=== PATIENT | female | born 1990 | race Caucasian/White ===

== ENCOUNTER 2025-01-16 21:56 | Emergency (ER) | payer OTHER, SELFPAY ==
--- OUTSIDE RECORDS SUMMARY | 2015-07-12 07:45 | XMS_ITS | Continuity of Care Document ---
Author Organization [facility] Address [address] [place] [address] [place] [address] Phone Care Team Providers Care Goal Umpire Name Role Phone Unavailable Unavailable Unavailable Procedures Procedure Date TB INTRADERMAL TEST Advance Directives Directive Yes / No Effective Date File Name No Information Encounters Encounter Description Practice Location Reason(s) For Visit Diagnoses Date Provider Providers Copied on Encounter [facility], [address] [place] [address], [place], [place], [id number], [place] tel:[phone] [facility] cc tb test (chief complaint) Encounter for screening for respiratory tuberculosis 4 No Information Family History Family Member Type Diagnosis Age At Onset No Information Payers Payer name Insurance type Covered republican ID Authoriza tion(s) [employer] [id number] Social History Type Description Quantity Date Captured Comments Alcohol Use Details Unknown Caffeine Use Details Unknown Tobacco Use Status No Information Smoking Status No Information Sex Female Chief Complaint And Reason For Visit From encounter dated '07/12/2015 12:45'. cc tb test (chief complaint) Reason For Referral Reason For Referral No Information History Of Present Illness Encounter Date Complaint History Of Prese nt Illness cc tb test Functional Status Date Functional Assessmen t No Information Instructions Date Instruction Additional Infor mation No Information Assessments Type Assessment Date assessment Encounter for screening for resp iratory tuberculosis Patient Care Teams Name Effective Dates (start - stop) Status Members No Information
--- OUTSIDE RECORDS SUMMARY | 2023-01-31 05:23 | XMS_ITS | Continuity of Care Document ---
Author Organization [facility] Address [address] [place] [address] Phone Care Team Providers Care Contract Design Agent Name Role Phone Román Silva DO Unavailable Unavailable Allergies, Adverse Reactions, Alerts Substance Reaction Status Criticality No Known Allergies Active No Inform ation Medications Medication Instructions Dosage Effective Dates (start - stop) Status Comments Wellbutrin XL 300 mg 24 hr tablet, extended release take 1 tablet by oral route every day 300 MG - Active Wellbutrin XL 150 mg 24 hr tablet, extended release take 1 tablet by oral route every day 150 MG - Active trazodone 50 mg tablet take 1 tablet by oral route every day at bedtime 50 MG - Active methadone 10 mg tablet take 3 tablet by oral route every 24 hours 30 MG - Active mupirocin 2 % topical ointment apply by topical route 2 times every day a small amount to the affected area Not Available - Active ibuprofen 800 mg tablet take 1 tablet by mouth three times a day with food as needed for pain - Active doxycycline monohydrate 100 mg capsule take 1 capsule by oral route 2 times every day 100 MG - Active buprenorphine 8 mg-naloxone [address] 1 tablet by sublingual route every day allow to dissolve slowly in mouth without chewing or swallowing 1.00 tablet - Active Procedures Procedure Date OFFICE/OUTPATIENT VISIT, EST ROUTINE VENIPUNCTURE PREV VISIT, EST, AGE 18-39 DRUG TEST PRSMV DIR OPT OBS DRUG SCREENING FENTANYL OFFICE/OUTPATIENT VISIT, EST OFFICE/OUTPATIENT VISIT, EST OFFICE/OUTPATIENT VISIT, EST Covid Testing [facility] PREV VISIT, EST, AGE 18-39 DRAINAGE OF SKIN ABSCESS OFFICE/OUTPATIENT VISIT, EST ROUTINE VENIPUNCTURE OFFICE/OUTPATIENT VISIT, EST ROUTINE VENIPUNCTURE OFFICE/OUTPATIENT VISIT, EST OFFICE/OUTPATIENT VISIT, EST OFFICE/OUTPATIENT VISIT, EST ROUTINE VENIPUNCTURE UDS Exempt REMOVE/INSERT DRUG IMPLANT Nexplanon 68mg Implant Extract; Erupted Th/exposted Rt 019 Removal Of Torus Mandibularis 9 Removal Of Torus Mandibularis 9 Extract; Erupted Th/exposted Rt 019 Extract; Erupted Th/exposted Rt 019 Extract; Erupted Th/exposted Rt 019 Extract; Erupted Th/exposted Rt 019 Extract; Erupted Th/exposted Rt 019 Extract; Erupted Th/exposted Rt 019 Extract; Erupted Th/exposted Rt 019 Extract; Erupted Th/exposted Rt 019 OFFICE/OUTPATIENT VISIT, EST CHIROPRACTIC MANIPULATION CHIROPRACTIC MANIPULATION CHIROPRACTIC MANIPULATION CHIROPRACTIC MANIPULATION CHIROPRACTIC MANIPULATION Comp Oral Eval New/estab Patient 2018 Intraoral-periapical 1st Film 9 Ocjdcpsyb-onmjglealm-fmvq Additional Jul Emkzrmngv-kybzkaskqp-hgmx Additional Jul Emnxmnnml-drmmpeeowv-sxag Additional Jul Augbmiofd-whpfkubnmr-avqx Additional Jul Tobacco Counseling Oral Hygiene Instruction CHIROPRACTIC MANIPULATION CHIROPRACTIC MANIPULATION CHIROPRACTIC MANIPULATION PREV VISIT, RAHEEL, AGE 18-39 CHIROPRACTIC MANIPULATION CHIROPRACTIC MANIPULATION No Charge UDS Exempt CHIROPRACTIC MANIPULATION CHIROPRACTIC MANIPULATION CHIROPRACTIC MANIPULATION CHIROPRACTIC MANIPULATION IMMUNIZATION ADMIN HEP A VACCINE, ADULT IM OFFICE/OUTPATIENT VISIT, NEW CHIROPRACTIC MANIPULATION Advance Directives Directive Yes / No Effective Date File Name No Information Encounters Encounter Description Practice Location Reason(s) For Visit Diagnoses Date Provider Providers Copied on Encounter [facility], [address] [place] [address], [id number] , tel:[phone] [facility] No Information 3 Plank DO Román. [address] [place] [address], [id number], [place]. tel:[phone] [facility], [address] [place] [address], [id number] , tel:[phone] [facility] No Information 3 Plank DO Román. [address] [place] [address], [id number], [place]. tel:[phone] OFFICE/OUTPA TIENT VISIT, EST [facility], [address] [place] [address], [id number] , tel:[phone] [facility] F/U (chief complaint)La b draw (chief complaint) Superficial thrombophlebitis of right upper extremityCelluli tis of finger of left hand Mar-0 - 3 Plank DO Román. [address] [place] [address], [id number], [place]. tel:[phone] [facility], [address], [place], [id number] , [place] tel: [phone] [facility] No Information 3 Plank DO Román. [address], [place], [id number], [place]. tel:[phone] PREV VISIT, EST, AGE 18-39 [facility], [address], [place], [id number] , [place] tel: [phone] [facility] Annual Exam (chief complaint)UD S (chief complaint)Re quisition (chief complaint) Encounter for general adult medical examination without abnormal findingsPain and swelling of upper extremity, rightOther specified soft tissue disordersSubstan ce use disorderBipolar disorder, unspecifiedSuper ficial thrombophlebitis of right upper extremity 3 Plank DO Román. [address], [place], [id number], [place]. tel:[phone] OFFICE/OUTPA TIENT VISIT, EST [facility], [address], [place], [id number] , [place] tel: [phone] [facility] med refill (chief complaint) Common wartBorderline personality disorderSubstanc e use disorderBody mass index [BMI] 31.0-31.9, adult Nov-0 2 Plank DO Román. [address], [place], [id number], [place]. tel:[phone] OFFICE/OUTPA TIENT VISIT, EST [facility], [address], [place], [id number] , [place] tel: [phone] [facility] hearing loss,tinniti s (chief complaint) Bilateral hearing loss, unspecified hearing loss typeBilateral tinnitus 2 Plank DO Román. [address], [place], [id number], [place]. tel:[phone] [facility], [address], [place], [id number] , [place] tel:[phone] [facility] Bilateral hearing loss, unspecified hearing loss type 2 Plank DO Román. [address], [place], [id number], [place]. tel:[phone] OFFICE/OUTPA TIENT VISIT, EST [facility], [address], [place], [id number] , [place] tel:[phone] [facility] Med Refill & ER F/U (chief complaint) Body mass index [BMI] 38.0-38.9, adultSinus headache 2 Plank DO Román. [address], [place], [id number], [place]. tel:[phone] [facility], [address] [place] [address], [id number] , [place] [phone] [facility] No Information 1 Visci DO Han. [address], [place], [id number], [place]. tel:[phone] PREV VISIT, EST, AGE 18-39 [facility], [address] [place] [address], [id number] , [place] tel:[phone] [facility] annual exam (chief complaint) Encounter for gynecological examination (general) (routine) without abnormal findingsBody mass index [BMI]40.0-44.9, adult- [facility] codeEnc[facility] for STD screening 1 Rolan [facility] Torito. [address], [place], [id number], [place]. tel:[phone] OFFICE/OUTPA TIENT VISIT, EST [facility], [address] [place] [address], [id number] , [place] tel:[phone] [facility] Right foot procedure (chief complaint) Elevated liver enzymesSuperfici al foreign body of right great toe, initial encounterOther specified local infections of the skin and subcutaneous tissueBody mass index [BMI]40.0-44.9, adult 1 Plank DO Román. [address], [place], [id number], [place]. tel:[phone] OFFICE/OUTPA TIENT VISIT, [facility], [address], [place], [id number] , [place] tel: [phone] [facility] est care (chief complaint) Superficial foreign body of right great toe, initial encounterTinea pedis of both feetSubstance use disorderChronic hepatitis C without hepatic comaSeasonal allergic rhinitis, unspecified triggerBody mass index [BMI]40.0-44.9, adult 1 Plank DO Román. [address], [place], [id number], [place]. tel:[phone] OFFICE/OUTPA TIENT VISIT, [facility], [address] [place] [address], [id number] , [place] tel: [phone] [facility] Hospital follow up (chief complaint) Body mass index (BMI) 35.0-35.9, adultHospital discharge follow-upPneumon ia of both lower lobes due to infectious organism 0 Mauro Leach. [address] [place] [address], [id number], [place]. [phone] OFFICE/OUTPA TIENT VISIT, [facility], [address] [place] [address], [id number] , [place] tel: [phone] [facility] med f/u (chief complaint) Body mass index (BMI) 32.0-32.9, adultBipolar 2 disorder, major depressive episode -201 9 Mauro Leach. [address] [place] [address], [id number], [place]. tel:[phone] OFFICE/OUTPA TIENT VISIT, [facility], [address], [place], [id number] , [place] tel: [phone] [facility] Depression follow up (chief complaint) Body mass index (BMI) 31.0-31.9, adultTobacco useBipolar 2 disorder, major depressive episodeElevated liver enzymesHepatitis C antibody test positiveEncounte r to discuss test results 9 Mauro Leach. [address], [place], [id number], [place]. tel:[phone] [facility], [address] [place] [address], [id number] , [place] tel:[phone] [facility] lab draw (chief complaint) No Information 9 Mauro Leach. [address], [place], [id number], [place]. tel:[phone] [facility], [address] [place] [address], [id number] , [place] tel:[phone] [facility] Nexplanon Removal & Re-insertion (chief complaint)co ntraception (chief complaint) Body mass index (BMI) 31.0-31.9, adultNexplanon removalNexplanon insertionEncount er for surveillance of other contraceptives 9 Ashlee Wallace. [address], [place], [id number], [place]. tel:[phone] [facility], [address] [place] [address], [id number] , [place] tel:[phone] [facility] Extractions (chief complaint) Encounter for screening for dental disorders 9 Harjit France. [address], [place], [id number], [place]. tel:[phone] OFFICE/OUTPA TIENT VISIT, EST [facility], [address] [place] [address], [id number] , [place] tel:[phone] [facility] Medication refill (chief complaint) Body mass index (BMI) 30.0-30.9, adultBipolar 2 disorder, major depressive episodeHepatitis C antibody test positivePolysubs tance abuseHair lossWeight gainElevated liver enzymesEncounter to discuss test results 9 Mauro Leach. [address], [place], [id number], [place]. tel:[phone] [facility], [address], [place], [id number] , [place] tel:[phone] [facility] thoracic spine (chief complaint)th oracic spine (chief complaint) Segmental and somatic dysfunction of thoracic regionPain in thoracic spineSegmental and somatic dysfunction of lumbar region 9 Dominik Mar. [address], [place], [id number], [place]. tel:[phone] [facility], [address] [place] [address], [id number] , [place] tel:[phone] [facility] thoracic spine (chief complaint)th oracic spine (chief complaint) Segmental and somatic dysfunction of thoracic regionPain in thoracic spineSegmental and somatic dysfunction of lumbar regionLow back pain 9 Dominik Mar. [address], [place], [id number], [place]. tel:[phone] [facility], [address] [place] [address], [id number] , [place] tel:[phone] [facility] thoracic spine (chief complaint)th oracic spine (chief complaint) Segmental and somatic dysfunction of lumbar regionLow back painSegmental and somatic dysfunction of thoracic region 9 Dominik Mar. [address], [place], [id number], [place]. tel:[phone] [facility], [address], [place], [id number] , [place] tel:[phone] [facility] thoracic spine (chief complaint)th oracic spine (chief complaint) Segmental and somatic dysfunction of thoracic regionPain in thoracic spineSegmental and somatic dysfunction of lumbar regionLow back pain 9 Dominik Mar. [address] [place] [address], [id number], [place]. tel:[phone] [facility], [address], [place], [id number] , [place] tel: [phone] [facility] lumbar spine (chief complaint)judi mbar spine (chief complaint) Segmental and somatic dysfunction of thoracic regionPain in thoracic spineSegmental and somatic dysfunction of lumbar regionLow back pain 0-201 9 Dominik Mar. [address] [place] [address], [id number], [place]. tel:[phone] [facility], [address] [place] [address], [id number] , [place] tel: [phone] Dental Clinic Encounter for screening for dental disorders 9 Everett Zarate. [address] [place] [address], [id number], [place]. tel:[phone] [facility], [address] [place] [address], [id number] , [place] tel: [phone] [facility] lumbar spine (chief complaint)judi mbar spine (chief complaint) Segmental and somatic dysfunction of lumbar regionLow back painSegmental and somatic dysfunction of thoracic regionPain in thoracic spine 9 Dominik Mar. [address] [place] [address], [id number], [place]. tel:[phone] [facility], [address] [place] [address], [id number] , [place] tel: [phone] [facility] lumbar spine (chief complaint)judi mbar spine (chief complaint) Segmental and somatic dysfunction of lumbar regionLow back painSegmental and somatic dysfunction of thoracic regionPain in thoracic spine 9 Dominik Mar. [address] [place] [address], [id number], [place]. tel:[phone] [facility], [address] [place] [address], [id number] , [place] tel: [phone] [facility] lumbar spine (chief complaint)judi mbar spine (chief complaint) Segmental and somatic dysfunction of lumbar regionLow back painSegmental and somatic dysfunction of thoracic regionPain in thoracic spine 9 Dominik Mar. [address], [place], [id number], [place]. tel:[phone] PREV VISIT, EST, AGE 18-39 [facility], [address], [place], [id number] , [place] tel: [phone] [facility] annual exam (chief complaint) Encounter for screening for HIVEncounter for STD screeningBody mass index (BMI) 26.0-26.9, adult- STD liefstyle code- Well woman normal findings 9 [facility] Torito. [address] [place] [address], [id number], [place]. tel:[phone] [facility], [address], [place], [id number] , [place] tel: [phone] [facility] lumbar spine (chief complaint)judi mbar spine (chief complaint) Segmental and somatic dysfunction of lumbar regionLow back painSegmental and somatic dysfunction of thoracic regionPain in thoracic spine 0 9 Dominik Mar. [address] [place] [address], [id number], [place]. tel:[phone] [facility], [address] [place] [address], [id number] , [place] tel: [phone] [facility] lumbar spine (chief complaint)judi mbar spine (chief complaint) Segmental and somatic dysfunction of lumbar regionLow back painSegmental and somatic dysfunction of thoracic regionPain in thoracic spine 0 9 Dominik Mar. [address] [place] [address], [id number], [place]. tel:[phone] [facility], [address] [place] [address], [id number] , [place] tel:[phone] [facility] No Information 9 Mauro Leach. [address] [place] [address], [id number], [place]. tel:[phone] [facility], [address], [place], [id number] , [place] tel:[phone] [facility] lumbar spine (chief complaint)judi mbar spine (chief complaint) Segmental and somatic dysfunction of lumbar regionLow back painSegmental and somatic dysfunction of thoracic regionPain in thoracic spine 9 Dominik Mar. [address], [place], [id number], [place]. tel:[phone] [facility], [address] [place] [address], [id number] , [place] tel: [phone] [facility] lumbar spine (chief complaint)judi mbar spine (chief complaint) Segmental and somatic dysfunction of lumbar regionLow back painSegmental and somatic dysfunction of thoracic regionPain in thoracic spine Dominik Mar. [address] [place] [address], [id number], [place]. tel:[phone] [facility], [address] [place] [address], [id number] , [place] tel:[phone] [facility] lumbar spine (chief complaint)judi mbar spine (chief complaint) Segmental and somatic dysfunction of lumbar regionLow back painSegmental and somatic dysfunction of thoracic regionPain in thoracic spine Dominik Mar. [address] [place] [address], [id number], [place]. tel:[phone] [facility], [address] [place] [address], [id number] , [place] tel:[phone] [facility] lumbar spine (chief complaint)judi mbar spine (chief complaint) Segmental and somatic dysfunction of lumbar regionLow back painSegmental and somatic dysfunction of thoracic regionPain in thoracic spine 9 Dominik Mar. [address] [place] [address], [id number], [place]. tel:[phone] OFFICE/OUTPA TIENT VISIT, NEW [facility], [address] [place] [address], [id number] , [place] tel:[phone] [facility] allergies (chief complaint)judi mp under arm (chief complaint)th ick toenails (chief complaint)He p C (chief complaint)LE AD (chief complaint)ab scess (chief complaint) Body mass index (BMI) 25.0-25.9, adultSeasonal allergiesElevate d blood lead levelPolysubstan ce abuseBipolar 2 disorder, major depressive episodeHepatitis C antibody test positiveFungal infection of toenailEnlarged lymph node 9 Mauro Leach. [address] [place] [address], [id number], [place]. tel:[phone] [facility], [address] [place] [address], [id number] , tel:[phone] [facility] lumbar spine (chief complaint)judi mbar spine (chief complaint) Segmental and somatic dysfunction of lumbar regionLow back painSegmental and somatic dysfunction of thoracic regionPain in thoracic spine 9 Dominik Mar. [address] [place] [address], [id number], [place]. tel:[phone] Family History Family Member Type Diagnosis Age At Onset Father Problem (finding) Mental illness Mother Problem (finding) Mental illness Father Problem (finding) migraine Father Problem (finding) alcoholism Brother Problem (finding) Allergies Father Problem (finding) depression Mother Problem (finding) depression Brother Problem (finding) Alive and well Mother Problem (finding) migraine Father Problem (finding) Blood disorder Mother Problem (finding) Allergies Father Problem (finding) Alive and well Brother Problem (finding) Mental illness Mother Problem (finding) Alive and well Mother Problem (finding) Obesity Brother Problem (finding) Obesity Brother Problem (finding) attention deficit hyper activity disorder Immunizations Vaccine Date Status Comments Hep A (adult) administered Source: New munization Record Payers Payer name Insurance type Covered alliance party ID Authoriza tion(s) [place] Medicaid [facility] [id number] Medicaid [facility] [id number] [place] Adv [facility] [id number] Medicaid [facility] [id number] Social History Type Description Quantity Date Captured Comments Alcohol Use Details Unknown Caffeine Use Details Unknown Tobacco Use Status Smoking Status No Information Sex Female Sexual Orientation Straight or heterosexual Gender Identity Female Chief Complaint And Reason For Visit No Information Reason For Referral Reason For Referral No Information Plan Of Treatment Date Type Action Status Goal Influenza vaccine. Due on due Goal Tdap. Due on due Goal HPV. Due on due Goal Tdap Vaccine. Due on 2022 due Goal Unhealthy drug use screening . Due on due Goal Lipid panel. Due on 029 due Goal Hepatitis C screening. Due o n due Goal Depression screening. Due on due Goal RLP. Due on due Goal PRAPARE ASSESSMENT. Due on due Goal Lipid panel. Due on due Goal RLP. Due on due Goal Depression screening. Due on due Goal Influenza vaccine. Due on due Goal PRAPARE ASSESSMENT. Due on due Goal Tdap Vaccine. Due on 2022 due Goal Tdap. Due on due Goal Tdap. Due on due Goal Tdap Vaccine. Due on 2022 due Goal Depression screening. Due on due Goal PRAPARE ASSESSMENT. Due on due Goal RLP. Due on due Goal Influenza vaccine. Due on due Goal Lipid panel. Due on due Goal Tobacco cessation counseling completed Goal Lipid panel. Due on due Goal Tdap Vaccine. Due on 2022 due Goal RLP. Due on due Goal Influenza vaccine. Due on due Goal PRAPARE ASSESSMENT. Due on due Goal Depression screening. Due on due Goal Tdap. Due on due Goal Tdap. Due on due Goal PRAPARE ASSESSMENT. Due on due Goal Lipid panel. Due on due Goal Tdap Vaccine. Due on 2022 due Goal RLP. Due on due Goal Depression screening. Due on due Goal Influenza vaccine. Due on due Goal Tobacco cessation counseling completed Goal Depression screening. Due on due Goal RLP. Due on due Goal Tdap. Due on due Goal Influenza vaccine. Due on due Goal Lipid panel. Due on due Goal PRAPARE ASSESSMENT. Due on due Goal Dietary management education , guidance, and counseling completed Goal Tobacco cessation counseling completed Goal Dietary management education , guidance, and counseling completed Goal Dietary management education , guidance, and counseling completed Goal Tobacco cessation counseling completed Goal Tobacco cessation counseling completed Goal Dietary management education , guidance, and counseling completed Goal Dietary management education , guidance, and counseling completed Goal Tobacco cessation counseling completed Goal Dietary management education , guidance, and counseling completed Goal Dietary management education , guidance, and counseling completed Goal Tobacco cessation counseling completed Goal Dietary management education , guidance, and counseling completed Goal Tobacco cessation counseling completed Goal Tobacco cessation counseling completed Goal Dietary management education , guidance, and counseling completed Goal Dietary management education , guidance, and counseling completed Goal Tobacco cessation counseling completed Goal Dietary management education , guidance, and counseling completed Goal Tobacco cessation counseling completed Referral Ordered: UNILATERAL NON-INVASIVE LOWER EXTREMITY VENOUS STUDY Right [id number] Ordered: Referrals: Otolaryngology. Evaluate and treat [id number] Ordered: US Exam Of ABD Limited gallbladder [id number] Ordered: Gastroenterology (related to Hepatitis C antibody test positive) [id number] Ordered: Referrals: Gastroenterology. Evaluate and treat [id number] Order: Lab OrderGyn Pap Test-Age -based Guideline for Cervical Cancer (Aptima) ([id number]), Sent on: [id number] Order: Lab OrderLead Standard Profile, Blood ([id number]), Ordered on: [id number] Order: Lab OrderCBC With Differential/Platelet ([id number]), Ordered on: [id number] Order: Lab Order Hepatic Function Panel (7) ([id number]), Ordered on: [id number] History Of Present Illness Encounter Date Complaint History Of Olegario nt Illness F/U Pt is here for a f/u bilateral hand swelling. Pt states that the swelling has improved but this morning she noticed a few areas that are raised, painful and tight. Pt has an area on left thumb that has gotten worse. She states it had a deep scab that she picked and it is looking dark. Pt has not gotten labs drawn due to the swelling and being out of town but is willing to have them done today. Pt admits to anxiety and depression. States that her medications are helping. She is also off her subutex and is now on methadone. Pt receives that script at [facility]. Pt smokes 1/2 PPD. Denies alcohol use. //STIVEN CamachoGADonnell 20 // PHQ 18 //STIVEN Camacho Lab draw Labs drawn succe ssfully x1 attempt L hand w/ butterfly. 2x2 and bandage applied. //STIVEN Camacho Annual Exam Pt here for [facility] wellness exam. States she smokes about 12 cigs/day, denies any ETOH usage. PHQ- 16 and AIDE- 18. States she missed her appt @ [facility] so they dismissed her from practice. States been on wait list for about a month to see [place]. Currently sees Meg @ [facility]; x2/month. Also, states on 22mg subutex Rx'd by [facility] (unsure of 's name).Also noted, bilateral hand swelling; states started about 3 days ago. No other issues/concerns at this time.//Harsha Tam RN Requisition Pt given lab req uisition to have labs completed at hospital. Pt also advised to go to hospital to obtain STAT order Venous Duplex (pt had left when this nurse went back to room to give her order to take w/ her to hospital.)//Harsha Tam RN UDS UDS-- (+) THC, C OC, BUPFentanyl Dip- NEGATIVE//Harsha Tam RN med refill Pt here today fo r med refill. Pt is wondering if PCP would be willing to take over psych meds that Dr. Olivera at [facility] prescribes. Pt states has not seen Joselin in approx 2 months. Pt states missed 2 appts with them has reached out to piano case and bench assembler Meg to see if pt can get back in with Dr. Olivera. Pt is requesting to have refills on Trazodone, remron, Prazosin, Wellbutrin and Ibuprofen. Pt also c/o something on R foot on 4th toe. Pt thinks its a corn, has noticed approx 1 year. Pt states has increased in size and is painful. Voices no other issues or concerns at this time. -RiteshERNIE. hearing loss,tinnitis The sympto ms began 5 months ago. The symptoms are reported as being severe. The symptoms occur constantly. The location is bilateral ears. She states the symptoms are chronic. symptoms identical to last time she presented with this.occasionally listens loud music. no apparent hx ototoxic meds Med Refill & ER F/U Pt here toda y for medication refill & ER F/U. Pt needs refill on Ibuprofen. Pt states she takes it for back pain, neck pain and headaches. Pt states she is taking medication daily and up to TID depending on her pain. States she is having daily headaches and takes the medication for that. Pt was in hospital recently. Pt states she is doing well and had apt tomorrow with Dr. Olivera psychiatrist. NO other issues or concernsTGrodi LPNdenies suicidal and homicidal thoughts. tptx hep c fa;ll 2020 dr bloom-will schedule f/u appt tpstates h/a mostly a nuisance. no n/v . not intractable . mosly bilat frontal. responds well to ibuprofen for long period of time. tp annual exam Currently pregna nt: no. : 5. Parity: Term: 4. Pre-Term: 1. Livin. Patient is not contemplating . The patient states she uses Nexplanon for control. Last LMP was 09/28/2019. Her menses is absent. Negative for dysmenorrhea and menorrhagia. Negative for: breast discharge, breast lump(s), breast pain and breast self exam.Negative for Hormone replacement therapy. The patient does use tobacco. Tobacco cessation has been discussed. She does drink alcohol. Additional information: Patient is here for annual exam. States she has the Nexplanon for BC. States she has not been sexually active for over 1 year. c/o vaginal discharge with odor. 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 Believes she may have BV as she has had it in the past and symptoms are the same. Right foot procedure Presents fo r procedure to right great toe. Possible foreign body. Pt has appt with Dr Bloom for elevated liver enzymes 09/27/2020. Bernadette Coe RNLab draw from right hand x 2 attempts, tolerated well, pressure dressing applied. Bernadette Coe RNagree tp est care Pt here today to est care. Pt states would like ibuprofen prescription for head aches, neuropathy and body pain. Pt is interested in starting Vivitrol, states was on it in the past. Pt states was on it in 2017. August was last use. DOC stated opiates, meth, stimulants , crack, cocain and alcohol. Pt states just got out of treatment and is noticing having more cravings, dreams about using. Treatment was at Saturday [facility] in [place], [place], was released 08/02/20. Pt sees psychiatrist Dr. Price, and counselor is Mirella at [facility]. Pt stats has something on great toe on right foot. Noticed approx 1 week ago, painful when walking. Pt notices some swelling and redness. Pt states has history of Hep C, states did not seek treatment for it. Was told in . Voices no other problems or concerns at this time. [facility] follow up Patient here for hospital stay follow up. Patient was admitted into [facility] for Pneumonia. Patient was discharged . Patient says she still isn't 100% but better than when she went in. Patient was given amoxicillin, mucinex and inhaler. Patient picked those up and is taking them. Patient has no issues at this time.Lola Mendoza.Noted above. She is feeling a little better, still very tired. She mentions that she is seeing Dr. Renata Downs at [facility] and she is prescribing all psych meds. No other concerns noted. jian med f/u Pt is here to di scuss her Latuda. She would like it increased if possible. Pt also would like refill on her Prozac. Pt states that she is taking a break from her Nicotine patches. NDIltsCMANoted above. Patient reports she saw her counselor at [facility] last week and they discussed that patient is feeling more impulsive lately. Her Latuda dose has not been changed since June 2018. She is still planning to see a psychiatrist when possible through [facility], but that will not be as quick as she thought . Patient is worried because it was the increased impulsiveness that caused her to relapse back to drug use last time . [facility] Depression follow up Patient her e to follow up on depression. Patient states that she moved out of Anushka's house and got own apartment. Patient feels medication is working but not enough. Patient hoping for in increase. Patient is going to [facility] counseling and recovery. Patient is wanting to stop smoking and would like patches or what ever you feel is best. No other issues at this time.Lola Mendoza.Noted above. Patient reports she did not get her refill of Buspirone when she got her other meds last time. She is not sure why, verified that prescription was sent, she is to call pharmacy and then call clinic if assistance is needed. [facility] lab draw Labs obtained chung ccessfully on first attempt from left hand. STIVEN Rosa Nexplanon Removal & Re-insertion contraception Extractions Medication refill Patient here f or medication refills. Patient is needing all meds refilled. Patient is requesting an antidepressant. Patient is having hard time getting into [facility] Counseling. They had a dr. suggs and is behind. Patient says bipolar meds are working but is having depression. 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 Patient is concerned that her thyroid may be off. Patient asked about labs. No other issues at this time.Lola Mendoza.Noted above. Patient reports feeling more depressed, she was on Latuda and prozac together in the past. She is worried about her thyroid because her hair is falling out and she is tired and gaining weight. [place] thoracic spine thoracic spine Pt reports feeli ng good this week.RI score today 19 thoracic spine thoracic spine Pt reports mid b ack tightness.RI score today 37 thoracic spine thoracic spine Pt feeling much better. Re-check in 1 week. thoracic spine thoracic spine Pt continues to progress as anticipated.RI score 08/12/2018- 40 lumbar spine lumbar spine Pt reports mid b ack feels better. lumbar spine lumbar spine Pt continues to progress as anticipated. lumbar spine lumbar spine Pt reports feeli ng tightness and soreness in mid back. lumbar spine lumbar spine Pt continues to progress as anticipated. annual exam Currently pregna nt: no. : 5. Parity: Term: 4. Pre-Term: 1. Livin. The patient states she uses Nexplanon for control. Last LMP was 06/18/2018. Her menses is irregular with light flow. There are no pertinent negatives. The patient does use tobacco. She does drink alcohol. Additional information: Noticed lump in right axilla about 1 month ago. Reports lump wasn't painful and resolved on it's own. Pt requests std check and annual exam. Previous exams done by [facility] in [facility]. Pt declines condoms. Yola SALEEM Patient is here for annual exam. Currently using Nexplanon for BC. States it expires in Oct 2018. Would like a new Nexplanon for future use. 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 lumbar spine lumbar spine Pt continues to improve as anticipated. lumbar spine lumbar spine Pt continues to slowly improve. lumbar spine pt continues to progress as anticipated. lumbar spine lumbar spine lumbar spine Pt progressing a s anticipated. lumbar spine lumbar spine pt reports havin g side effects to new medications including jaw tightness and headache. lumbar spine lumbar spine Pt reports doing well after first adjustment. thick toenails LEAD abscess Hep C Patient here to discuss allergies, lump under arm, thick toe nails and Hep C. Patient was originally wanting to get back on Vivitrol but wants to wait at this time. Patient wants to discuss it with you. Patient states she is having issues with seasonal allergies. Patient is sneezing, sinus congestion, stuffy/runny nose. Patient states she just notice she over last few months her nails on toes are thick. Patient is concerned with high lead levels due to last job at [employer]. Patient also has Hep C. Was diagnosed in 2014. 06/13/18 was last use. DOC was opioids and cocaine. I advised patient that most Occupational Therapist Aide will not treat until 6 months clean. Patient has lump under right arm pit. Patient noticed it while in shower 2 wks ago. Patient has nexplanon and is scheduled to see torito 07/29/18. Lastly patient has abscess on left wrist that was treated by ne disla with antibiotic No other issues at this time.Lola Mendoza.Noted above. Patient was on Vivitrol in the past for 18 months, reports she had more intense headaches with it . She is worried what would happen if she was on it and used cocaine with heroin or fentanyl in it? Talked in length that we would encourage no illicit drug use. She was diagnosed as bipolar 2 and skyped with a psychiatrist through [facility] that has her on current medication. She is asking for allergy medication. She is worried about toenail fungus, discussed potential liver impact to traditional treatments. Patient reports known Hep C+. She also is concerned about blood lead levels, reports she worked at [employer] and had to wear a mask but her levels were always high. JHackerNP allergies lump under arm lumbar spine lumbar spine C/O low and mid back pain with onset in teens after falling on a log. Reports upper and lower localized pain which is worse in cold weather or with increased activity. Pt reports being dx with a bone spur in low back.Pain is primarily at L3-L5 PVM on the Rt. & Lt. and extends to the SI joint, Rt. & Lt. Pain is local, dull, and without radiation to the lower extremities. No sensory or motor changes noted. Symptoms present with a pain scale of 5 (VAS = 1-10). Pain interferes with regular ADL's. Increase in pain with movement/ROM and ADL'S. Some decrease in symptoms with rest. No change in the pain pattern from the onset of symptoms. Pain pattern is as prior times. Functional Status Date Functional Assessmen t No Information Instructions Date Instruction Additional Infor toan Giving encouragement to exercise Related to Body mass index [BMI] 31.0-31.9, adult Dietary management e ducation, guidance, and counseling Related to Body mass index [BMI] 31.0-31.9, adult Giving encouragement to exercise Related to Body mass index [BMI] 38.0-38.9, adult Dietary management e ducation, guidance, and counseling Related to Body mass index [BMI] 38.0-38.9, adult Encouraged monthly B SE. Recommend calcium 1000mg QD. Encouraged good dietary intake and exercise. Laboratory specimens sent to lab. Patient to call in 2 weeks if desires results.Discussed control options and patient desires Nexplanon Related to Encounter for gynecological examination (general) (routine) without abnormal findings Cervical cultures se nt to lab. Patient to call in 1 week for results. Discussed HX of BV and patietn request Rx for flagyl as she believes that is her susanna at this time. Discussed proper hygiene measures. Rx for flagyl was sent to her pharmacy. Related to - STD liefstyle code Dietary management e ducation, guidance, and counseling Related to Body mass index [BMI]40.0-44.9, adult Giving encouragement to exercise Related to Body mass index [BMI]40.0-44.9, adult Giving encouragement to exercise Related to Body mass index [BMI]40.0-44.9, adult Dietary management e ducation, guidance, and counseling Related to Body mass index [BMI]40.0-44.9, adult Giving encouragement to exercise Related to Body mass index [BMI]40.0-44.9, adult Dietary management e ducation, guidance, and counseling Related to Body mass index [BMI]40.0-44.9, adult Giving encouragement to exercise Related to Body mass index (BMI) 35.0-35.9, adult Dietary management e ducation, guidance, and counseling Related to Body mass index (BMI) 35.0-35.9, adult Giving encouragement to exercise Related to Body mass index (BMI) 32.0-32.9, adult Dietary management e ducation, guidance, and counseling Related to Body mass index (BMI) 32.0-32.9, adult Dietary management e ducation, guidance, and counseling Related to Body mass index (BMI) 31.0-31.9, adult Giving encouragement to exercise Related to Body mass index (BMI) 31.0-31.9, adult Dietary management e ducation, guidance, and counseling Related to Body mass index (BMI) 31.0-31.9, adult Giving encouragement to exercise Related to Body mass index (BMI) 31.0-31.9, adult Giving encouragement to exercise Related to Body mass index (BMI) 30.0-30.9, adult Dietary management e ducation, guidance, and counseling Related to Body mass index (BMI) 30.0-30.9, adult Encouraged monthly B SE. Recommend calcium 1000mg QD. Encouraged good dietary intake and exercise. Laboratory specimens sent to lab. Patient to call in 2 weeks if desires results.Discussed control options and patient desires Nexplanon Related to - Well woman normal findings HIV and RPR drawn and sent to [facility] b. Related to Encounter for screening for HIV Cervical cultures se nt to lab. Patient to call in 1 week for results Related to Encounter for STD screening Giving encouragement to exercise Related to Body mass index (BMI) 26.0-26.9, adult Dietary management e ducation, guidance, and counseling Related to Body mass index (BMI) 25.0-25.9, adult Giving encouragement to exercise Related to Body mass index (BMI) 25.0-25.9, adult Assessments Type Assessment Date No Information Patient Care Teams Name Effective Dates (start - stop) Status Members No Information
--- NOTE | 2025-01-16 22:01 | ECG_ITS ---
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 Measurements Intervals [place] Rate: 89 P: 70 W[place]: 146 QRS: 68 QRSD: 76 T: 67 QT: 362 QTc: 408 Interpretive Statements 1100 Sinus rhythm 9110 normal ECG No previous ECG available for comparison Electronically Signed On 01-17-2025 4:37:32 EST by JAQUELINE CRUZ M.D.
[2025-01-16 22:06] VITALS: BP 118/74; PULSE 88; TEMP 36.3; O2SAT 97; BMI 21.9
--- OUTSIDE RECORDS SUMMARY | 2025-01-16 22:33 | XMS_ITS | Clinical Summary ---
Author Organization [facility] Address [id number] [address] [place] [address] Care Team Providers Care Cordwainer Name Role Phone No Pcp, No Pcp Primary Care Provider Unavailabl e Allergies Active AllergyReactionsCriticalityNoted CehjLbovtymxPkayjtfHkbbSec64/30/2016 Possible childhood reaction Medications No known medications Active Problems ProblemNoted DateDiagnosed DateBipolar 1 jdyopnvq93/30/2018 Overview (09/16/2017): On Buspar Hx of substance abuse09/16/2017 Overview (09/16/2017): 09/16/2017: clean now, since May 2015 Nexplanon qiwchqjst08/15/2016 Immunizations ImmunizationAdministration DatesNext DueInfluenza, Injectable, quadrivalent (PF) 11/22/2015 Family History Medical HistoryRelationNameCommentsClotting disorderFatherDepressionFatherStroke FatherDepressionMotherThyroid diseaseMotherGallbladder diseasePaternal GrandfatherDepressionSisterRelationNameStatusCommentsBrotherAliveFatherAlive Maternal GrandfatherDeceasedMaternal GrandmotherDeceasedMotherAlivePaternal GrandfatherDeceasedPaternal GrandmotherDeceasedSisterAlive Social History Tobacco UseTypesPacks/DayYears UsedDateSmoking Tobacco: Every DayCigarettes0.515 Started: 06/16/2000; Last attempted to quit: 06/17/2015Smokeless Tobacco: Never Tobacco Cessation:Ready to Q uit: Not Asked; Counseling Given: Not Answered Alcohol UseStandard Drinks/WeekCommentsNot Currently0 (1 standard drink = 0.6 oz pure alcohol)Not currentlyChildcareAnswerDate AnnxqfsfDrtbkpsagKoyiulp35/12/2019 EmploymentAnswerDate FyszuuukFwwcwyydzsDtgawwm66/12/2019Hunger ScreeningAnswer Date RecordedWithin the past 12 months we worried whether our food would run out before we got money to buy more.Never True05/12/2024Within the past 12 months the food we bought just didn't last and we didn't have money to get more.Never True05/12/2024Purpose - LifeAnswerDate RecordedPurpose and direction in life Ekwwppm03/11/2021CommentsNoSex and Gender InformationValueDate Recorded Sex Assigned at BirthNot on fileLegal ChrVeolop50/06/2015 12:07 PM EDTGender IdentityNot on fileSexual OrientationNot on file Last Filed Vital Signs Vital SignReadingTime TakenCommentsBlood Bvhzinqj220/7905/12/2024 10:46 PM EDT Hjoep330305/12/2024 10:46 PM EAWMjuonhuunss43.7 ??C (98.1 ??F)05/12/2024 10:46 PM EDTRespiratory Nbvm602905/12/2024 10:46 PM EDTOxygen Gomfspjenc96%05/12/2024 10:45 PM EDTInhaled Oxygen Concentration--Hlglgz05.5 kg (140 lb)05/12/2024 10:46 PM ZAKRyowjh448.6 cm (5' 4 )05/12/2024 10:46 PM EDTBody Mass Index24.03005/12/2024 10:46 PM EDT Plan of Treatment Health MaintenanceDue DateLast DoneCommentsTobacco Wbkkoykams42/18/1989 Depression Gengzeyzr26/18/2001Pap Smear2009COVID-19 Vaccine ( season)5005/13/2020Influenza Itfrvhi72, 11/22/2015, 01/01/2006dult BMI Vmpgwzhah10Tobacco Wfzyfyqyg80/25/2026 05/12/2024DTaP,Tdap and Td Vaccines (8 - Td or Tdap), 11/06/2005, 04/23/1995, Additional history exists Medical Devices Not on file Insurance Care Teams Team MemberRelationshipSpecialtyStart DateEnd Date No Pcp, No Pcp IVAN [place] [id number] PCP - GeneralFaakly [facility]05/12/24
[2025-01-16 22:56] LABS: Glucose Urine UA NEGATIVE (NEGATIVE)
[2025-01-16 23:02] LABS: Cast Seen? NONE SEEN #/LPF (NONE SEEN); Crystals Seen? None Seen #/HPF (None Seen); Urine Culture Indicated NO
[2025-01-16 23:04] LABS: Hematocrit 43.3 % (36.0-48.0); Hemoglobin 14.3 g/dL (12.0-16.0); Immature Granulocytes Abs Auto 0.02 10^3/uL (0.00-0.03); Immature Granulocytes Pct Auto 0.3 % (0.0-0.5); Lymphocytes Absolute Auto 3.7 10^3/uL (1.2-3.8); Mean Corpuscular HGB Conc 33.0 g/dL (29.9-35.2); Mean Corpuscular Hemoglobin 29.9 pg (26.7-34.0); Mean Corpuscular Volume 90.6 fL (81.0-99.0); Platelet Count 191 10^3/uL (150-450); Red Blood Count 4.78 10^6/uL (4.20-5.40); White Blood Count 7.7 10^3/uL (4.0-11.0)
[2025-01-16 23:06] LABS: Cannabinoid Screen Urine POSITIVE (NEGATIVE); Methamphetamines Screen Urine NEGATIVE (NEGATIVE); Tricyclic Antidepressant Urine NEGATIVE (NEGATIVE)
[2025-01-16 23:15] LABS: Alanine Aminotransferase 96 U/L (14-59); Albumin Globulin Ratio 1.1; Albumin Level 3.6 g/dL (3.4-5.0); Alkaline Phosphatase 54 U/L (46-116); Anion Gap 7.3; Aspartate Amino Transferase 44 U/L (15-37); Blood Urea Nitrogen 12.0 mg/dL (7.0-18.0); Calcium 9.0 mg/dL (8.5-10.1); Carbon Dioxide 29.7 mmol/L (21.0-32.0); Chloride 108 mmol/L (98-107); Estimated GFR (African America >60 (>=60 mL/min/1.73m^2); Estimated GFR (Non-African Ame >60 (>=60 mL/min/1.73m^2); Globulin 3.4 g/dL; Glucose 88 mg/dL (74-106); Potassium 4.0 mmol/L (3.5-5.1); Salicylate 3.3 mg/dL (<=19.9); Sodium 141 mmol/L (136-145); Total Protein 7.0 g/dL (6.4-8.2)
[2025-01-16 23:28] LABS: Acetaminophen <2.0 ug/mL (10.0-30.0)
--- NOTE | 2025-01-17 00:58 | ED_ITS ---
HPI - Medical Clearance General Chief complaint: Medical Clearance Stated complaint: MEDICAL CLEARANCE Time Seen by Provider: 01/16/25 22:01 Source: patient Mode of arrival: law enforcement History of Present Illness HPI Narrative: Patient is a 34-year-old female presenting to the emergency department in police custody for medical clearance. Patient had a warrant out for her arrest, which is why she is in custody. The patient use crack cocaine and alcohol earlier tonight. Police are concerned as the patient endorsed suicidal ideation. The patient herself has no acute complaints. She denies chest pain, shortness breath, nausea, or vomiting, hallucinations, or any other psychiatric complaints. She denies suicidal ideation to me. Related Information Allergies Allergy/AdvReac Type Severity Reaction Status Date / Time No Known Drug Allergies Allergy Verified 01/16/25 22:06 Review of Systems ROS Status of ROS 10 or more systems reviewed and unremark able except as noted in history and below Exam Narrative Exam Narrative: CONSTITUTIONAL: No acute distress, not responding to internal stimuli, answer questions and follow commands poorly. SKIN: Was warm and dry. EYES: Sclerae white. EARS, NOSE, THROAT: Moist oral mucosa. RESPIRATORY: Clear to auscultation bilaterally, no wheezes, crackles, or stridor, no use of accessory muscles CARDIOVASCULAR: Normal rate and regular rhythm. There is no S3, S4, murmur, rub. GASTROINTESTINAL: Abdomen is nondistended. MUSCULOSKELETAL: No peripheral edema. NEUROLOGIC: Patient is awake and alert. Facies were symmetrical. Constitutional Vital Signs, click to edit/add: Last Vital Signs Temp 97.3 F L 01/16/25 22:06 Pulse 88 01/16/25 22:06 Resp 20 01/16/25 22:06 BP 118/74 01/16/25 22:06 Pulse Ox 97 01/16/25 22:06 O2 Del Method Room Air 01/16/25 22:06 Course Vital Signs Vital signs: Vital Signs Temperature 97.3 F L 01/16/25 22:06 Pulse Rate 88 01/16/25 22:06 Respiratory Rate 20 01/16/25 22:06 Blood Pressure 118/74 01/16/25 22:06 Pulse Oximetry 97 01/16/25 22:06 Oxygen Delivery Method Room Air 01/16/25 22:06 Temperature 97.3 F L 01/16/25 22:06 Pulse Rate 88 01/16/25 22:06 Respiratory Rate 20 01/16/25 22:06 Blood Pressure 118/74 01/16/25 22:06 Pulse Oximetry 97 01/16/25 22:06 Oxygen Delivery Method Room Air 01/16/25 22:06 MDM - Medical Clearance MDM Narrative Medical decision making narrative: Patient is a 34-year-old female presenting to the emergency department in police custody for medical and psychiatric clearance. Her vital signs are within normal limits. She is afebrile and hemodynamically stable. She has normal physical examination. She has no evidence of acute psychosis and denies suicidal ideation to me. IV was established and laboratory studies were obtained for medical clearance. Laboratory studies were unremarkable. No significant electrolyte or metabolic derangement. No evidence of acute kidney injury. No anemia, leukocytosis, or thrombocytopenia. No hyperbilirubinemia. Mild transaminitis, ALT: AST ratio of 2, likely related to alcohol use. test negative. Urinalysis negative. Urine drug screen positive for cannabinoids and cocaine. Tylenol and salicylate level not elevated. 12 Lead EKG: Normal sinus rhythm at a normal rate. Normal axis. No ST segment elevations. QRS, PA, and QTc interval within normal limits. Final impression: normal sinus rhythm without evidence of acute myocardial ischemia I do believe the patient is stable for discharge. The patient was conveyed to long term where she will be under psychiatric watch and will talk with a mental health counselor at the long term. Return precautions were given including any new or concerning symptoms. Patient and police understand and agree to the plan. FINAL IMPRESSION: #Acute encounter for medical clearance in police custody #Acute suicidal ideation DISPOSITION: Discharged in police custody CONDITION: Good Lab Data Labs: Lab Results 01/16/25 01/16/25 Range/Units 22:34 22:50 WBC 7.7 (4.0-11.0) 10^3/uL RBC 4.78 (4.20-5.40) 10^6/uL Hgb 14.3 (12.0-16.0) g/dL Hct 43.3 (36.0-48.0) % MCV 90.6 (81.0-99.0) fL MCH 29.9 (26.7-34.0) pg MCHC 33.0 (29.9-35.2) g/dL RDW 13.2 (11.0-15.0) % Plt Count 191 (150-450) 10^3/uL MPV 10.7 (9.5-13.5) fL Neut % (Auto) 43.2 (43.0-75.0) % Lymph % (Auto) 47.2 (20.5-60.0) % Kings % (Auto) 7.1 (1.7-12.0) % Eos % (Auto) 1.4 (0.9-7.0) % Baso % (Auto) 0.8 (0.2-2.0) % Neut # (Auto) 3.4 (1.4-6.5) 10^3/uL Lymph # (Auto) 3.7 (1.2-3.8) 10^3/uL Kings # (Auto) 0.6 (0.3-0.8) 10^3/uL Eos # (Auto) 0.1 (0.0-0.7) 10^3/uL Baso # (Auto) 0.1 (0.0-0.1) 10^3/uL Abs Immat Gran (auto) 0.02 (0.00-0.03) 10^3/uL Imm/Tot Granulo (auto) 0.3 (0.0-0.5) % Sodium 141 (136-145) mmol/L Potassium 4.0 (3.5-5.1) mmol/L Chloride 108 H (98-107) mmol/L Carbon Dioxide 29.7 (21.0-32.0) mmol/L Anion Gap 7.3 BUN 12.0 (7.0-18.0) mg/dL Creatinine 0.71 (0.55-1.02) mg/dL Est GFR ( Amer) >60 (>=60 mL/min/1.73m^2) Est GFR (Non-Af Amer) >60 (>=60 mL/min/1.73m^2) BUN/Creatinine Ratio 16.9 Glucose 88 (74-106) mg/dL Calcium 9.0 (8.5-10.1) mg/dL Total Bilirubin 0.2 (0.2-1.0) mg/dL AST 44 H (15-37) U/L ALT 96 H (14-59) U/L Alkaline Phosphatase 54 (46-116) U/L Total Protein 7.0 (6.4-8.2) g/dL Albumin 3.6 (3.4-5.0) g/dL Globulin 3.4 g/dL Albumin/Globulin Ratio 1.1 Serum HCG, Qual Negative (NEGATIVE) Urine Color Yellow (YELLOW) Urine Clarity Clear (CLEAR) Urine pH 6.0 (5.0-9.0) Ur Specific [place] 1.020 (1.005-1.025) Urine Protein Negative (NEG/TRACE) mg/dL Urine Glucose (UA) Negative (NEGATIVE) mg/dL Urine Ketones Negative (NEGATIVE) mg/dL Urine Occult Blood Negative (NEGATIVE) Urine Nitrite Negative (NEGATIVE) Urine Bilirubin Negative (NEGATIVE) Urine Urobilinogen 0.2 (0.2-1.0) EU/dL Ur Leukocyte Esterase Negative (NEGATIVE) Urine RBC None seen (0-2) #/HPF Urine WBC 0-2 A (NONE SEEN) #/HPF Ur Squamous Epith Cells Few A (NONE/RARE) #/LPF Urine Crystals None seen (None Seen) #/HPF Urine Bacteria Trace A (NONE SEEN) #/HPF Urine Casts None seen (NONE SEEN) #/LPF Urine Mucus Trace A (NONE SEEN) Ur Culture Indicated? No Salicylates 3.3 (<=19.9) mg/dL Urine Opiates Screen Negative (NEGATIVE) Ur Buprenorphine Scrn Negative (NEGATIVE) Ur Oxycodone Screen Negative (NEGATIVE) Urine Methadone Screen Negative (NEGATIVE) Acetaminophen <2.0 L (10.0-30.0) ug/mL Ur Barbiturates Screen Negative (NEGATIVE) U Tricyclic Antidepress Negative (NEGATIVE) Ur Phencyclidine Scrn Negative (NEGATIVE) Ur Amphetamines Screen Negative (NEGATIVE) U Methamphetamines Scrn Negative (NEGATIVE) U Benzodiazepines Scrn Negative (NEGATIVE) Urine Cocaine Screen Positive A (NEGATIVE) U Cannabinoids Screen Positive A (NEGATIVE) Ethanol Quant <3 mg/dL Discharge Plan Discharge Chief Complaint: Medical Clearance Clinical Impression: Medical clearance for incarceration Patient Disposition: Home, Self-Care Time of Disposition Decision: 23:30 Condition: Good Mode of Transportation: Other Print Language: Maltese Instructions: Medical Clearance for Psychiatric Care (ED) Additional Instructions: Pt is medically cleared. [facility] will contact pt at [facility]. Referrals: Physician,Non-Staff, [Primary Care Provider] - 1 week Discharge Date/Time: 01/16/25 23:46
== END 2025-01-16 23:46 ==
PROVIDERS: Emergency Provider Student in an Organized Health Care Education/Training Program
DX: Z02.89 Encounter for other administrative examinations (principal)
CPT/HCPCS: 36415; 80053; 80179; 80307; 80320; 80329; 81001; 84703; 85025; 93005; 99284